=== PATIENT | female | born 1955 | race Caucasian/White ===

== ENCOUNTER → 2020-12-29 10:12 | Outpatient (CLI) | payer MEDICARE, SELFPAY ==
--- NOTE | ~2020-12-29 | MR_ITS ---
EXAMINATION: MR lumbar spine wo con DATE: 12/29/2020 10:54 INDICATION: Acute bilateral sciatica with severe lower back and bilateral leg pain and tingling of on e-week duration TECHNIQUE: Magnetic resonance imaging (MRI) of the lumbar spine was performed without intravenous con trast. Sequences included sagittal T2-weighted FSE, sagittal T2-weighted FS FSE, sagittal T1-weighted FSE, and axial T2-weighted FSE. COMPARISON: Thoracic spine radiographs dated 04/24/2019 FINDINGS: Marrow edema surrounding linear low signal intensity likely acute insufficiency fracture lines withou t evident displacement extending transversely across the S2 vertebral body and incompletely visualize d along the visualized anterolateral aspects of the left and right sacral ala. Approximately 20 degrees lumbar dextroscoliosis. 6 mm anterolisthesis L4 on L5. No associated pars in terarticularis defects. Chronic T10 burst fracture with 50% anterior vertebral body height loss and t o have 3 mm retropulsion. Additional chronic T12 compression fracture with 20% anterior vertebral bod y height loss. There are Schmorl's nodes along the superior endplates of both T10 and T12. These find ings appear unchanged since radiographs dated 04/24/2019. Lumbar vertebral body heights are normal. Mi ld fibrovascular degenerative endplate changes on both sides of the L4-L5 and L5-S1 disc spaces. [place] ow signal is otherwise unremarkable. Disc desiccation and mild left-sided disc height loss at L2-L3 a nd L3-L4. Severe disc height loss at L4-L5 and mild to severe right-sided predominant disc height los s at L5-S1. There are annular fissures and disc extrusions at both L4-L5 and L5-S1 which be further d etailed below. The conus medullaris terminates at L1-L2. There is normal signal in the caudal spinal cord. Paravertebral soft tissues are unremarkable. The following disc levels are specifically discuss ed: T12-L1: Disc is minimally bulging. There is mild right and minimal left facet joint osteoarthritis. T here is no neural foraminal stenosis. There is no central canal stenosis. L1-L2: Disc is minimally bulging. There is mild right and minimal left facet joint osteoarthritis. Th ere is no neural foraminal stenosis. There is no central canal stenosis. L2-L3: Disc is mildly bulging. There is mild left and minimal right facet joint osteoarthritis. There is mild bilateral neural foraminal stenosis. There is mild central canal stenosis. L3-L4: Disc is mildly bulging. There is mild hypertrophy of the ligamentum flavum. There is mild bila teral facet joint osteoarthritis. There is mild right and minimal left neural foraminal stenosis. The re is mild central canal stenosis. L4-L5: Disc is bulging with annular fissure and superimposed disc extrusion extending from the right subarticular zone through the left foraminal zone with disc material extending up to 6 more cephalad to the level of the inferior endplate of L4. There is hypertrophy of the ligamentum flavum. There is severe right and advanced left facet joint osteoarthritis. There is moderate right and moderate to se ellen left neural foraminal stenosis with compression of the exiting left L4 nerve root between the di sc extrusion in the junction of the left pedicle and base of the transverse process of L4. There is s evere central canal stenosis. L5-S1: Disc is bulging with annular fissure and small central disc extrusion with disc material exten ding 2-3 mm cephalad and caudal to the level of the endplates. There is mild to moderate left and sev ere right facet joint osteoarthritis. There is mild to moderate left and moderate to severe right belen ral foraminal stenosis with compression of the exiting right L5 nerve root. There is mild central can al stenosis and of the right lateral recess. IMPRESSION: 1. Relatively acute appearing sacral insufficiency fractures extending across the S2 vertebral b
== END ==
PROVIDERS: PCP Family Medicine Adolescent Medicine; Visit Provider Family Medicine Adolescent Medicine
DX: M54.40 Lumbago with sciatica, unspecified side (principal)
CPT/HCPCS: 72148

== ENCOUNTER 2021-01-03 10:32 | Observation (INO) | payer MEDICARE, SELFPAY ==
[2021-01-03] VITALS (7 sets, daily range): BP systolic 115–145; BP diastolic 67–87; PULSE 85–102; RESP 18–25; TEMP 36.2–36.6; O2SAT 98–100; BMI 18.3
[2021-01-03] MEDS: SODIUM CHLORIDE 0.9% IV 1,000 ML 999 ML IV CONT (10:59)
[2021-01-03 11:09] LABS: Basophils Absolute Auto 0.1 K/mm3 (0.0-0.1); Basophils Percent Auto 0.8 % (0.2-1.2); Eosinophils Percent Auto 0.5 % (0-4.4); Hemoglobin 11.4 g/dL (12.0-15.0); Immature Granulocyte Absolute 0.05 K/mm3 (0.00-0.031); Immature Granulocyte Percent A 0.6 % (0-0.5); Lymphocytes Percent Auto 21.4 % (18.3-44.2); Mean Corpuscular HGB Conc 32.6 g/dl (32-36); Mean Corpuscular Hemoglobin 32.8 pg (26-34); Mean Corpuscular Volume 100.6 fl (80-100); Mean Platelet Volume 9.2 fl (7.4-10.4); Monocytes Absolute Auto 0.4 K/mm3 (0.1-0.6); Neutrophils Percent Auto 71.7 % (45.5-73.1); Platelet Count Result 510 k/mm3 (150-375); Red Blood Count 3.48 M/mm3 (4.2-5.4); Red Cell Distribution Width 12.8 % (11.5-14.5); White Blood Count 8.4 K/mm3 (4.5-10.0)
[2021-01-03] MEDS: methocarbamoL 750 MG TABLET PO (11:10)
[2021-01-03] MEDS: LIDOCAINE 5% PATCH 1 PATCH TRANSDERM (11:22)
[2021-01-03 11:34] LABS: Add Urine Microscopic? YES; Appearance Urine Clear (Clear); Bilirubin Urine Negative (Negative); Blood Urine Negative (Negative); Color Urine Yellow (Yellow); Glucose Urine UA Negative (Negative); Ketones Urine 1+ mg/dL (Negative); Leukocyte Esterase Ur Negative LEU/UL (Negative); Mucus Urine Rare /lpf; Nitrate Urine Negative (Negative); Protein Urine 1+ mg/dL (Negative); RBC Urine 0-2 /hpf (0-2); Specific Grav Ur 1.027 (1.001-1.035); Urobilinogen Urine Negative mg/dL (<2.0); WBC Urine 0-3 /hpf
[2021-01-03 11:53] LABS: Anion Gap 4 mmol/L (8-16); Blood Urea Nitrogen 16 mg/dL (7-17); Calcium 8.9 mg/dL (8.4-10.2); Carbon Dioxide 23 mmol/L (22-30); Chloride 111 mmol/L (98-107); Estimated Glomerular Filt Rate > 60; Glucose 91 mg/dL (65-105); Potassium 3.9 mmol/L (3.4-5.0); Sodium 138 mmol/L (137-145)
--- NOTE | 2021-01-03 12:41 | PC.NURSE ---
Patient unable to sit up in bed or stand at bedside or ambulate. Also refusing to use urinal for urine specimen. Patient was straight cath for urine when arrived per her request. Kristofer YUEN notified.
--- NOTE | 2021-01-03 13:25 | ED.BACK ---
HPI - Back Pain/Injury General Chief Complaint: Back Pain/Injury <Tommy Sierra PA-C Last Filed: 01/03/21 13:29> Stated Complaint: back pain <Tommy Sierra PA-C Last Filed: 01/03/21 13:29> Source: patient, family and old records reviewed <Tommy Sierra PA-C Last Filed: 01/03/21 13:29> Limitations: no limitations <Tommy Sierra PA-C Last Filed: 01/03/21 13:29> History of Present Illness HPI Narrative: Patient is a 65-year-old female who presents to emergency department for evaluation of low back pain patient had had a fall several weeks prior and has since had increasing low back pain her primary care doctor Dr. Guerrero ordered a MRI of the lumbar spine which revealed a sacral insufficiency fracture as the likely etiology of her discomfort and pain pain is localized to the low back and radiates into the thigh on the right side patient denies other injury or trauma or illness presents uncomfortable has been taking some old pain medication with minimal improvement and over the last 3 days due to the pain is having difficulty performing daily activities patient lives at home with her <Tommy Sierra PA-C Last Filed: 01/03/21 13:29> Related Data Home Medications: Home Medications Medication Instructions Recorded Confirmed No Home Medications 01/03/21 01/03/21 <Tommy Sierra PA-C Last Filed: 01/03/21 13:29> Allergies/Adverse Reactions: Allergies Allergy/AdvReac Type Severity Reaction Status Date / Time doxycycline Allergy Vomiting Verified 01/03/21 16:04 prochlorperazine Allergy Vomiting Verified 01/03/21 16:04 [From Compazine] <Tommy Sierra PA-C Last Filed: 01/03/21 13:29> Review of Systems Review of Systems: All systems reviewed & are unremarkable except as noted in HPI and below <Tommy Sierra PA-C Last Filed: 01/03/21 13:29> [facility] Past Medical History Medical History: Medical History (Updated 01/03/21 @ 16:08 by Adarsh Giron MD) Arthritis COPD (chronic obstructive pulmonary disease) Dextroscoliosis Thoracic compression fracture T10 & T12 due to fall Tobacco use disorder, continuous <Tommy Sierra PA-C - Last Filed: 01/03/21 13:29> Surgical History Surgical History: Surgical History (Updated 01/03/21 @ 16:02 by Adarsh Giron MD) Hx of tonsillectomy <Tommy Sierra PA-C - Last Filed: 01/03/21 13:29> Family History Family History: Family History Father , Unknown medical hx No problems noted. Mother Lung cancer Sibling Well adult <Tommy Sierra PA-C - Last Filed: 01/03/21 13:29> Social History Social History: Social History (Updated 01/03/21 @ 16:05 by Adarsh Giron MD) Smoking packs per day: 1 Smoking cigarettes per day: 20.0 Smoking status: Current every day smoker Tobacco type: cigarettes Second hand tobacco smoke exposure: No Alcohol intake: current Alcohol use details: occasional Substance use: current Substance use type: marijuana Other substance usage details: occasional Living arrangements: with family Additional living arrangements comments: Resides with spouse in their own home Occupation/Education: occupation 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 HEAD: Normocephalic, atraumatic. EYES: PERRLA and EOMI. ENT: Nares clear, no rhinorrhea or epistaxis. Mucous membranes moist. NECK: Supple. No adenopathy or masses. CHEST: Clear to auscultation. No respiratory dis
--- NOTE | 2021-01-03 15:24 | PM.IMHP ---
H&P: HPI History of Present Illness Date/Time: 01/03/21 15:24 Chief Complaint: LOW BACK PAIN TO RIGHT BUTTOCK AND THIGH AND UNABLE TO GET OUT OF BED Narrative: 67-year-old female was in her usual state of health until about 2 weeks ago. She did have a fall 2 weeks ago. It was raining and the neighbor's dog ran up and jumped up placing is from pause on her and pushed her forward. She did not have any pain during the fall. Soon afterwards however she noticed that while sitting on the kitchen floor playing with her puppy she had pain in her low back and gluteal fold region when getting up. She had been sitting on the kitchen floor playing with a puppy intermittently since she obtained it about 3 months ago. At 1st the pain hurt only when she was getting up off the kitchen floor. Gradually increased so that it hurt any time she was up and about or changing positions. With past week it has been radiating to the right buttock and posterior thigh. She also noticed some tingling in both legs down to the ankles over the last few days. On December 29 she was underwent an MRI of her lumbosacral spine. It revealed an insufficiency fracture across S2 that appeared relatively acute with older appearing fractures at T10 and T12 and with moderate dextroscoliosis and spondylolysis. For the past 2-3 days she was able to get out of bed by rolling over and out of bed. However today she was unable to do that because of severe pain. Because of her inability to get out of bed she presented to the emergency department. She describes her pain as a severe deep aching that is constant. Relieved by lying down. Worsened by any movement, sitting, or standing. Motrin provides minimal relief. Other than constipation, she denied change in bowel or bladder function. Last bowel movement was January 01 and was firm. She denied any abnormal bleeding. She denied dysuria. She denied incontinence of bowel or bladder. She denied weakness the lower extremities but did admit to a tingling sensation down posterior thighs and legs to the feet. Review of Systems Review of Systems: All systems reviewed & are unremarkable except as noted in HPI and below PMFSH Past Medical History Medical History (Updated 01/03/21 @ 16:08 by Adarsh Giron MD) Arthritis COPD (chronic obstructive pulmonary disease) Dextroscoliosis Thoracic compression fracture T10 & T12 due to fall Tobacco use disorder, continuous Surgical History Surgical History (Updated 01/03/21 @ 16:02 by Adarsh Giron MD) Hx of tonsillectomy Family History Family History Father , Unknown medical hx No problems noted. 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
--- NOTE | 2021-01-03 15:54 | ADMGEN ---
This patient, Salena Solis, was admitted to [facility] Surg Room 302-01. Patient/family oriented to hospital policies and general routines including ID bracelet, bed and alarms, visiting hours, pain management, procedures, bathroom and other care routines, personal items, smoking policy, room service/diet, and visiting hours. Information on how to activate the Rapid Response Team has been discussed. Patient/Family are encouraged to report perceived risks to care and to ask questions if they do not understand what they are told or what they should do.
[2021-01-03] MEDS: HYDROcodone/acetaminophen (*CRX) 5-325 MG TABLET 1 TAB PO ×2 (16:40→23:37)
[2021-01-03] MEDS: LACTATED RINGERS 1,000 ML 75 ML IV CONT (17:34)
[2021-01-03 18:02] LABS: Immature Reticulocyte Fraction 10.5 % (3.0-15.9); Reticulocyte Percent 1.77 % (0.7-4.3); Reticulocytes Absolute 0.06 B/L (32.2-175.7)
[2021-01-03 18:14] LABS: Magnesium 1.4 mg/dL (1.6-2.3)
[2021-01-03 18:16] LABS: CRP 0.6 mg/dL (<1.0)
[2021-01-03 18:31] LABS: Parathyroid Intact 28.2 pg/mL (7.5-53.5)
[2021-01-03 18:46] LABS: Iron 55 ug/dL (37-170)
[2021-01-03 18:55] LABS: Percent Iron Saturation 21 % (20-50)
[2021-01-03 19:04] LABS: Vitamin D 25 Hydroxy 36.7 ng/mL
[2021-01-03 19:16] LABS: Thyroid Stimulating Hormone Reflex 0.579 uIU/mL (0.465-4.68)
[2021-01-03 19:21] LABS: Folic Acid > 20.0 ng/mL (2.76->20); Vitamin B12 > 1000.0 pg/mL (239-931)
[2021-01-03] MEDS: SENNOSIDES 8.6 MG TABLET PO (20:09)
[2021-01-04 06:00] VITALS: BP 149/79; PULSE 86; RESP 18; TEMP 36.6; O2SAT 98
[2021-01-04 06:17] LABS: Hematocrit 30.8 % (37.0-47.0); Hemoglobin 10.3 g/dL (12.0-15.0); Mean Corpuscular HGB Conc 33.4 g/dl (32-36); Mean Corpuscular Hemoglobin 32.8 pg (26-34); Mean Corpuscular Volume 98.1 fl (80-100); Mean Platelet Volume 9.4 fl (7.4-10.4); Platelet Count Result 491 k/mm3 (150-375); Red Blood Count 3.14 M/mm3 (4.2-5.4); Red Cell Distribution Width 12.4 % (11.5-14.5); White Blood Count 7.9 K/mm3 (4.5-10.0)
[2021-01-04 06:30] LABS: Anion Gap 7 mmol/L (8-16); Blood Urea Nitrogen 11 mg/dL (7-17); Calcium 8.6 mg/dL (8.4-10.2); Carbon Dioxide 21 mmol/L (22-30); Chloride 110 mmol/L (98-107); Estimated CRCL calculation 52 ml/min; Estimated Glomerular Filt Rate > 60; Glucose 85 mg/dL (65-105); Potassium 3.8 mmol/L (3.4-5.0); Sodium 138 mmol/L (137-145)
[2021-01-04] MEDS: LACTATED RINGERS 1,000 ML 75 ML IV CONT (08:07)
[2021-01-04] MEDS: HYDROcodone/acetaminophen (*CRX) 5-325 MG TABLET 1 TAB PO ×2 (08:10→12:12)
[2021-01-04 09:15] LABS: Magnesium 1.3 mg/dL (1.6-2.3)
[2021-01-04 09:26] VITALS: O2SAT 96
[2021-01-04 12:18] LABS: Magnesium 1.3 mg/dL (1.6-2.3)
[2021-01-04] MEDS: MAGNESIUM SULF 2 GM/WATER 50ML 2 GM/50 ML BAG IVPB (12:18)
[2021-01-04] MEDS: ENOXAPARIN 40 MG/0.4 ML SYRINGE SUB-Q (12:22)
[2021-01-04 14:00] VITALS: BP 147/87; PULSE 104; RESP 16; TEMP 36.2; O2SAT 97
--- NOTE | 2021-01-04 16:22 | PM.DS ---
DS: Admitting Diagnosis Admitting Diagnosis Admitting Diagnosis: low back pain, ambulatory dysfunction DS: Discharge Diagnosis Discharge Diagnosis (1) Bilateral sacral insufficiency fracture: Qualifiers: Encounter type: sequela Qualified Code(s): M84.48XS - Pathological fracture, other site, sequela Code(s): M84.48XA - Pathological fracture, other site, initial encounter for fracture Status: Acute Assessment and Plan: Date of Admission 01/03/21 Date of Discharge 01/04/21 Ms. Solis is a 65yo F who presented to the ED for evaluation for lower back pain to right buttock and thigh. She noted over the last week or two, she has been getting up and down to the floor recently playing with her new puppy. She first noticed pain to her low back and gluteal fold region when getting up. On 12/29/20 she underwent outpatient MRI lumbosacral spine which displayed an insufficiency fracture across S2 that appeared relatively acute with older appearing fractures at T10 and T12 and with moderate dextroscoliosis and spondylolysis. This is felt to be the etiology of her pain. Day of arrival, she had trouble even getting out of bed or walking prompting her to come to the ED. She has been treated with supportive care with tylenol and [place] for pain control. She is improved today and is able to ambulate with a walker with some help. She declines needing further discharge needs or SNF placement. She notes she is going to obtain a walker and her will be able to help her at home. Magnesium level 1.3 and replaced. She is hemodynamically stable for discharge 01/04/21 with instructions to follow up with PCP this week. (2) Anemia: Qualifiers: Anemia type: unspecified type Qualified Code(s): D64.9 - Anemia, unspecified Code(s): D64.9 - Anemia, unspecified Status: Acute Assessment and Plan: Unsure of chronicity, no baseline labs here for comparison. No evidence of acute bleeding. (3) Thrombocytosis: Code(s): D47.3 - Essential (hemorrhagic) thrombocythemia Status: Acute Assessment and Plan: No baseline available Worrisome for iron deficiency or underlying neoplastic or inflammatory disorder; iron on lower end in normal limit. She has not had a screening colonoscopy Stool occult blood ordered but no BM while here. Monitor CBC outpatient, follow up PCP. (4) Tobacco use disorder, continuous: Code(s): F17.209 - Nicotine dependence, unspecified, with unspecified nicotine-induced disorders Status: Acute Assessment and Plan: Patient was educated on the importance of smoking cessation. DS: Summary Hospital Course Hospital Course: See above Time Spent with Patient Time attestation: Total time spent providing and/or coordinating discharge services: 35 minutes Exam Narrative: Exam Narrative: HEENT: EOMI, sclerae nonicteric, oral mucosa moist. NECK: Supple, no JVD CHEST: Clear to auscultation. Normal effort. HEART: Rate and rhyhtm regular. ABDOMEN: soft, nontender, nondistended, bowel sounds present. EXTREMITIES: No cyanosis, edema, or clubbing NEUROLOGIC: CN intact and symmetric to inspection. No focal neurologic deficits are noted. Speech is clear. MUSCULOSKELETAL: Tone and strength symmetric. 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 SLR DANYELL causes pain to buttock. PSYCH: Alert. Oriented to person, place, and time. DS: Data Data Completed and Pending Labs on day of discharge: Last Vital Signs Temp 97.2 F L 01/04/21 14:00 Pulse 104 H 01/04/21 14:00 Resp 16 01/04/21 14:00 BP 147/87 H 01/04/21 14:00 Pulse Ox 97 01/04/21 14:00 Laboratory Tests 01/04/21 05:35 01/04/21 05:35 Discharge Plan Discharge Attending physician on discharge
[2021-01-07 06:15] LABS: Albumin 3.7 g/dL (3.8-4.8); Alpha 1 Globulin 0.4 g/dL (0.2-0.3); Alpha 2 Globulin 0.8 g/dL (0.5-0.9); Beta 1 Globulin 0.4 g/dL (0.4-0.6); Gamma Globulin 0.6 g/dL (0.8-1.7); Protein, Total 6.2 g/dL (6.1-8.1)
[2021-01-09 05:33] LABS: Creatinine, Random Urine 48 mg/dL (20-275); Total Protein/Creatinine Ratio 292 mg/g creat (21-161)
== END 2021-01-04 17:50 | disposition home or self-care (01) ==
LOC: ANHED 15:24 → ANH3MEDSUR 15:31
PROVIDERS: Emergency Medicine Emergency Medical Services; Physician Assistant; Admitting Provider Internal Medicine; Emergency Provider Emergency Medicine; PCP Family Medicine Adolescent Medicine; Visit Provider Family Medicine
DX: M84.48XA Pathological fracture, other site, initial encounter for fracture (principal); D64.9 Anemia, unspecified; D47.3 Essential (hemorrhagic) thrombocythemia; F17.210 Nicotine dependence, cigarettes, uncomplicated; Z79.899 Other long term (current) drug therapy
CPT/HCPCS: 36415; 51701; 80048; 81001; 82306; 82570; 82607; 82746; 83540; 83550; 83735; 83970; 84100; 84155; 84156; 84165; 84166; 84443; 85025; 85027; 85046; 86140; 96361; 96365; 96367; 96372; 96376; 97161; 97165; 99285; A9270; G0378; J0131; J1650; J3475; J7030; J7120

== ENCOUNTER 2021-01-11 13:03 | Outpatient (NON) | payer MEDICARE, SELFPAY ==
[2021-01-11 14:16] LABS: Magnesium 1.6 mg/dL (1.6-2.3)
== END 2021-01-11 13:04 | disposition home or self-care (01) ==
PROVIDERS: PCP Family Medicine Adolescent Medicine; Visit Provider Family Medicine Adolescent Medicine
DX: M84.48XD Pathological fracture, other site, subsequent encounter for fracture with routine healing (principal); D64.9 Anemia, unspecified; D47.3 Essential (hemorrhagic) thrombocythemia
CPT/HCPCS: 83735

== ENCOUNTER → 2022-07-20 14:22 | Outpatient (CLI) | payer MEDICARE, SELFPAY ==
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
== END ==
PROVIDERS: PCP Family Medicine Adolescent Medicine; Visit Provider Family Medicine Adolescent Medicine
DX: S32.010D Wedge compression fracture of first lumbar vertebra, subsequent encounter for fracture with routine healing (principal); X58.XXXD Exposure to other specified factors, subsequent encounter; M85.88 Other specified disorders of bone density and structure, other site
CPT/HCPCS: 72070; 72100

== ENCOUNTER → 2022-09-02 09:11 | Outpatient (CLI) | payer MEDICARE, SELFPAY ==
--- NOTE | ~2022-09-02 | MR_ITS ---
EXAMINATION: MR lumbar spine wo con DATE: 09/02/2022 10:42 INDICATION: Low back pain. TECHNIQUE: Magnetic resonance imaging (MRI) of the lumbar spine was performed without intravenous con trast. Sequences included sagittal T2-weighted FSE, sagittal T2-weighted FS FSE, sagittal T1-weighted FSE, and axial T2-weighted FSE. COMPARISON: Lumbar spine MRI 12/29/2020, radiograph 04/19/2022 FINDINGS: There is 23 degrees dextroscoliosis of lumbar spine. There is 7 mm anterolisthesis of L4 on L5. There is a burst fracture of T9 with 2/5 loss of height, low signal fracture lines, bone marrow edema, and retropulsion of bone 2 mm into central spinal canal. There is a chronic burst fracture of T10 with mild central canal stenosis. There is a chronic compression fracture of T12. There is a burs t fracture of L1 with 3/5 loss of height centrally, retropulsion of bone 5 mm into central spinal can al, and bone marrow edema. There is mildly decreased disc height at L3-L4 and severely decreased disc height at L4-L5 and L5-S1 with endplate remodeling. The distal spinal cord signal intensity is srinivasa l. The conus medullaris is at L1-L2. The following disc levels are specifically discussed: T12-L1: The disc is bulging. There is mild bilateral facet joint osteoarthritis. There is mild bilate ral neural foraminal stenosis. There is mild central canal stenosis. L1-L2: The disc is bulging. There is mild bilateral facet joint osteoarthritis. There is no neural fo raminal stenosis. There is mild central canal stenosis. L2-L3: The disc is bulging. There is mild right and severe left facet joint osteoarthritis. There is mild bilateral neural foraminal stenosis. There is mild central canal stenosis. L3-L4: The disc is bulging. There is severe right and moderate left facet joint osteoarthritis. There is mild bilateral neural foraminal stenosis. There is mild central canal stenosis. L4-L5: The disc is bulging and has an annular fissure. There is severe bilateral facet joint osteoart hritis. There is mild right and severe left neural foraminal stenosis. There is mild central canal st enosis. L5-S1: The disc is bulging and has an annular fissure. There is severe bilateral facet joint osteoart hritis. There is moderate right and mild left neural foraminal stenosis. There is mild central canal stenosis. IMPRESSION: 1. Subacute L1 burst fracture, stable from 07/20/22. 2. T9 burst fracture, likely acute or subacute, new from 07/20/22. 3. Severe lumbar spondylosis. 4. Lumbar dextroscoliosis. Reviewed, dictated and finalized at location A. ESS ARCHITECT
== END ==
PROVIDERS: PCP Nurse Practitioner Adult Health; Visit Provider Nurse Practitioner Adult Health
DX: M47.896 Other spondylosis, lumbar region (principal); S22.071D Stable burst fracture of T9-T10 vertebra, subsequent encounter for fracture with routine healing; X58.XXXD Exposure to other specified factors, subsequent encounter; S32.011D Stable burst fracture of first lumbar vertebra, subsequent encounter for fracture with routine healing
CPT/HCPCS: 72148

== ENCOUNTER 2022-12-20 08:16 | Emergency (ER) | payer MEDICARE, SELFPAY ==
[2022-12-20] VITALS (9 sets, daily range): BP systolic 108–132; BP diastolic 64–79; PULSE 90–126; RESP 12–20; TEMP 36.3–37; O2SAT 97–100
--- NOTE | ~2022-12-20 | CT_ITS ---
Noncontrast CT scan of the lumbar spine MEDICAL HISTORY: Back pain, prior surgery TECHNIQUE: Axial noncontrast imaging of the lumbar spine was performed. Sagittal and coronal reformat frank images were constructed. Dose reduction technique was used on this scan by utilizing automated ex posure control and iterative reconstruction technique. FINDINGS: Moderate compression fracture of L1 is present with vertebroplasty cement. Questionable min imally displaced fracture, obliquely oriented at the posterior superior left side of the L5 vertebral body (sagittal images 34-35).. There is anterior fusion across the L4-L5 and L5-S1 disc spaces. Ther e are interbody fusion devices at the L4-L5 and L5-S1 disc spaces. There is an apparent underlying 5 mm anterolisthesis of L4 over L5. Remaining disc spaces are well-preserved. At L1-L2, there is probable minimal disc bulge. No spinal canal stenosis. There is probable moderate bilateral neural foraminal narrowing. At L2-L3, there is no disc bulge or herniation. No spinal canal stenosis or definite neural foraminal narrowing. At L3-L4, there is probable mild disc bulge and mild facet joint/ligamentum flavum hypertrophy. Proba ble minimal central canal stenosis. Neural foramina are preserved. At L4-L5, there is disc bulge and facet arthropathy, with probable moderate to severe thecal sac comp ression/spinal canal stenosis. There is probable moderate bilateral neural foraminal narrowing, left worse than right. At L5-S1, there is no definite disc bulge or herniation. No definite spinal canal stenosis. There is probable severe right neural foraminal narrowing and moderate left neural foraminal narrowing. There is asymmetric prominent enlargement of the left psoas major muscle, with scattered small bubble s of soft tissue gas in the muscle. There is infiltrative change in the surrounding retroperitoneal f at. There is additional infiltration of presacral soft tissues. IMPRESSION: Asymmetric enlargement of the left psoas major muscle with surrounding infiltrative changes and sever al small bubbles of scattered soft tissue gas. Findings could reflect postoperative change and/or int ramuscular hematoma. Soft tissue/postoperative infection is not excluded. Correlation with patient's symptomatology, labwork, and timeframe of prior surgery advised. Questionable oblique minimally displaced fracture at the posterior, superior left side of the L5 vert ebral body, as detailed above. Status post anterior fusion from L4 to L5 and L5-S1 with associated interbody fusion, as detailed abo ve. Moderate chronic L1 compression fracture deformity with vertebroplasty cement. Multifactorial probable moderate to severe thecal sac compression at L4-L5. Multilevel neural foramin al narrowing at the lower lumbar spine, as detailed above. Underlying 5 mm anterolisthesis of L4 over L5. Reviewed, dictated and finalized at [facility].
--- NOTE | ~2022-12-20 | CT_ITS ---
CT scan of the lumbar spine MEDICAL HISTORY: Back pain, prior surgery TECHNIQUE: Axial imaging of the lumbar spine was performed prior to and following intravenous demonst ration of a 3 cc of Omnipaque 350 contrast material. Sagittal and coronal reformatted images were con structed. Dose reduction technique was used on this scan by utilizing automated exposure control and iterative reconstruction technique. The dose-length product (DLP) was 649.90 mGy-cm. FINDINGS: Moderate compression fracture of L1 is present with vertebroplasty cement. Questionable min imally displaced fracture, obliquely oriented at the posterior superior left side of the L5 vertebral body (sagittal images 34-35).. There is anterior fusion across the L4-L5 and L5-S1 disc spaces. Ther e are interbody fusion devices at the L4-L5 and L5-S1 disc spaces. There is an apparent underlying 5 mm anterolisthesis of L4 over L5. Remaining disc spaces are well-preserved. At L1-L2, there is probable minimal disc bulge. No spinal canal stenosis. There is probable moderate bilateral neural foraminal narrowing. At L2-L3, there is no disc bulge or herniation. No spinal canal stenosis or definite neural foraminal narrowing. At L3-L4, there is probable mild disc bulge and mild facet joint/ligamentum flavum hypertrophy. Proba ble minimal central canal stenosis. Neural foramina are preserved. At L4-L5, there is disc bulge and facet arthropathy, with probable moderate to severe thecal sac comp ression/spinal canal stenosis. There is probable moderate bilateral neural foraminal narrowing, left worse than right. At L5-S1, there is no definite disc bulge or herniation. No definite spinal canal stenosis. There is probable severe right neural foraminal narrowing and moderate left neural foraminal narrowing. There is asymmetric prominent enlargement of the left psoas major muscle, with scattered small bubble s of soft tissue gas in the muscle. There is a fluid-filled tract through the anterior portion of the muscle, which could reflect abscess versus postoperative change. There is infiltrative change in the surrounding retroperitoneal fat. There is additional infiltration of presacral soft tissues. IMPRESSION: Asymmetric enlargement of the left psoas major muscle with surrounding infiltrative changes and fluid -filled tract with small bubbles of gas within the muscle. Findings could reflect postoperative fonseca e and/or abscess with soft tissue infection. Correlation with patient's symptomatology, labwork, and timeframe of prior surgery advised. Questionable oblique minimally displaced fracture at the posterior, superior left side of the L5 vert ebral body, as detailed above. Status post anterior fusion from L4 to L5 and L5-S1 with associated interbody fusion, as detailed abo ve. Moderate chronic L1 compression fracture deformity with vertebroplasty cement. Multifactorial probable moderate to severe thecal sac compression at L4-L5. Multilevel neural foramin al narrowing at the lower lumbar spine, as detailed above. Underlying 5 mm anterolisthesis of L4 over L5. Reviewed, dictated and finalized at location M. IMPRESSION: Asymmetric enlargement of the left psoas major muscle with surrounding infiltra tive changes and fluid-filled tract with small bubbles of gas within the muscle . Findings could reflect postoperative change and/or abscess with soft tissue i nfection. Correlation with patient's symptomatology, labwork, and timeframe of prior surgery advised. Questionable oblique minimally displaced fracture at the posterior, superior le ft side of the L5 vertebral body, as detailed above. Status post anterior fusion from L4 to L5 and L5-S1 with assoc
--- NOTE | ~2022-12-20 | CT_ITS ---
CT head without contrast Indication: Altered mental status Technique: Serial scans were obtained through the brain without the administration of contrast. Dose reduction technique was used on this scan by utilizing automated exposure control and iterative recon struction technique. The dose-length product (DLP) was 605.33 mGy-cm. Findings: There is no evidence of intracranial hemorrhage, mass lesion, or acute infarct. The ventri cles and subarachnoid spaces are dilated, consistent with mild atrophy. Low attenuation regions are seen within the periventricular white matter bilaterally, likely representing changes from chronic mi crovascular ischemic disease. There is no evidence of edema, mass effect or midline shift. The visu alized paranasal sinuses and mastoid air cells are clear. Impression: No intracranial hemorrhage, mass, or acute infarct. Atrophy and chronic white matter changes, as above. Reviewed, dictated and finalized at location . Impression: No intracranial hemorrhage, mass, or acute infarct. Atrophy and chronic white matter changes, as above.
--- NOTE | 2022-12-20 08:30 | ECG_ITS ---
Measurements Intervals [place] Rate: 122 P: -18 CO: 111 QRS: 40 QRSD: 82 T: 44 QT: 304 QTc: 433 Interpretive Statements SINUS TACHYCARDIA WITH SHORT CO INTERVAL DELAYED PRECORDIAL R/S TRANSITION BASELINE ARTIFACT- I, II, III, AVR, AVL, AVF, V6 ABNORMAL ECG NO PREVIOUS ECG AVAILABLE FOR COMPARISON Electronically Signed On 12-20-2022 9:00:28 CDT by Mykel Rodriguez D.O.
[2022-12-20 08:58] LABS: Basophils Absolute Auto 0.1 K/mm3 (0.0-0.1); Basophils Percent Auto 0.4 % (0.2-1.2); Hematocrit 30.3 % (37.0-47.0); Hemoglobin 9.6 g/dL (12.0-15.0); Immature Granulocyte Absolute 0.08 K/mm3 (0.00-0.031); Immature Granulocyte Percent A 0.6 % (0-0.5); Lymphocytes Absolute Auto 0.72 K/mm3 (0.9-3.2); Lymphocytes Percent Auto 5.7 % (18.3-44.2); Mean Corpuscular HGB Conc 31.7 g/dl (32-36); Mean Corpuscular Hemoglobin 31.5 pg (26-34); Mean Corpuscular Volume 99.3 fl (80-100); Mean Platelet Volume 9.8 fl (7.4-10.4); Monocytes Absolute Auto 0.9 K/mm3 (0.1-0.6); Monocytes Percent Auto 6.8 % (2.6-8.5); Neutrophils Percent Auto 86.5 % (45.5-73.1); Platelet Count Result 414 k/mm3 (150-375); Red Blood Count 3.05 M/mm3 (4.2-5.4); Red Cell Distribution Width 13.1 % (11.5-14.5); White Blood Count 12.7 K/mm3 (4.5-10.0)
[2022-12-20 09:11] LABS: INR 1.2; Partial Thromboplastin Time 30.2 SECONDS (22.3-36.8); Prothrombin Time 14.5 Seconds (11.1-14.7)
[2022-12-20 09:19] LABS: Alanine Aminotransferase 19 U/L (6-35); Albumin Level 4.4 g/dL (3.5-5.1); Alkaline Phosphatase 90 U/L (38-126); Anion Gap 10 mmol/L (8-16); Aspartate Amino Transferase 27 U/L (14-36); Bilirubin,Total 0.8 mg/dL (0.2-1.3); Blood Urea Nitrogen 16 mg/dL (7-17); Calcium 8.5 mg/dL (8.4-10.2); Carbon Dioxide 29 mmol/L (22-30); Chloride 102 mmol/L (98-107); Estimated CRCL calculation 45 ml/min; Estimated Glomerular Filt Rate > 60; Glucose 141 mg/dL (65-110); Potassium 4.1 mmol/L (3.4-5.0); Sodium 141 mmol/L (137-145)
--- NOTE | 2022-12-20 11:16 | ED.AMS ---
HPI - Altered Mental Status General Chief Complaint: Altered Mental Status Stated Complaint: confused Time Seen by Provider: 12/20/22 10:29 History of Present Illness HPI narrative: 67-year-old female presents to the emergency room today for evaluation after having episode of confusion upon awakening this morning. She just had back surgery on Monday at [facility] with Dr. Spangler. She was discharged home on Monday. She has been doing okay with taking pain medication. Her went to get her out of bed this morning and she seemed very disoriented. When she tried to stand up she got very lightheaded and he had to put her back down in the bed. He went ahead and brought her in for evaluation at that point. She says that she continues to have the postop low back pain. She has not had any fever or chills. No nausea, vomiting or diarrhea. Related Data Allergies Allergy/AdvReac Type Severity Reaction Status Date / Time doxycycline Allergy Vomiting Verified 12/20/22 10:02 prochlorperazine Allergy Vomiting Verified 12/20/22 10:02 [From Compazine] Review of Systems Review of Systems: CONSTITUTIONAL: Denies fever, chills, or sweats. EYES: Denies visual changes, redness, or discharge. ENT: Denies rhinorrhea, congestion, sore throat, or otalgia. CARDIOVASCULAR: Denies chest pain, palpitations, or edema. RESPIRATORY: Denies cough or dyspnea. GASTROINTESTINAL: Denies abdominal pain, nausea, vomiting, or diarrhea. GENITOURINARY: Denies dysuria or hematuria. SKIN: Denies rash or itching. MUSCULOSKELETAL: low back pain NEUROLOGIC:as per HPI PSYCHIATRIC: Denies anxiety or depression. [facility] Past Medical History Medical History Arthritis COPD (chronic obstructive pulmonary disease) Dextroscoliosis Thoracic compression fracture T10 & T12 due to fall Tobacco use disorder, continuous Surgical History Surgical History Hx of tonsillectomy Family History Family History Father , Unknown medical hx No problems noted. 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 HEAD: Normocephalic, atraumatic. EYES: PERRLA and EOMI NECK: Supple. No adenopathy or masses. No carotid bruits or JVD CHEST: Clear to auscultation. No respiratory distress. No wheezes rales or rhonchi HEART: Regular rate and rhythm. No murmur heard. Normal peripheral pulses. ABDOMEN: Soft, nontender, nondistended, normal active bowel sounds. surgical incision from umbilicus to pubic bone well approximated, with intact grant, no erythema or drainage EXTREMITIES: Normal range of motion. No edema. SKIN: Warm, dry, no rash. NEURO: No focal deficits. Alert and oriented x3. PSYCH: Normal mood and affect. Course Course Emergency Course: 1310 Discussed patient with neurosurgeon, Dr. Spangler, at [facility]. He feels that CT findings are consistant with post op status.
[2022-12-20 11:22] LABS: Appearance Urine Clear (Clear); Bacteria Urine None Seen /hpf; Bilirubin Urine Negative (Negative); Blood Urine 1+ (Negative); Color Urine Dark Yellow (Yellow); Glucose Urine UA Negative (Negative); Ketones Urine 4+ mg/dL (Negative); Leukocyte Esterase Ur Trace LEU/UL (Negative); Mucus Urine Present /lpf; Need Manual Microscopic Reviewed; Nitrate Urine Negative (Negative); Protein Urine 2+ mg/dL (Negative); Specific Grav Ur 1.028 (1.001-1.035); Squamous Epithelial Cell Urine None seen /hpf (Few); WBC Urine 0-5 /hpf; pH Urine 6.5 (5.0-9.0)
[2022-12-20] MEDS: SODIUM CHLORIDE 0.9% IV 1,000 ML 999 ML IV CONT (11:26)
[2022-12-20 11:33] LABS: Add Urine Microscopic? YES
[2022-12-20 11:55] LABS: Lactic Acid Reflex 1.1 mmol/L (0.7-2.0)
== END 2022-12-20 14:36 | disposition home or self-care (01) ==
PROVIDERS: Emergency Medicine; Emergency Provider Nurse Practitioner Family; PCP Family Medicine Adolescent Medicine
DX: R41.82 Altered mental status, unspecified (principal); G89.18 Other acute postprocedural pain; M54.50 Low back pain, unspecified; J44.9 Chronic obstructive pulmonary disease, unspecified; M19.90 Unspecified osteoarthritis, unspecified site; F17.210 Nicotine dependence, cigarettes, uncomplicated; R00.0 Tachycardia, unspecified; Z98.1 Arthrodesis status; R93.7 Abnormal findings on diagnostic imaging of other parts of musculoskeletal system
CPT/HCPCS: 36415; 70450; 72132; 72133; 80053; 81001; 83605; 85025; 85610; 85730; 87040; 93005; 96360; 96361; 99284; J7030; Q9967

== ENCOUNTER → 2022-12-21 13:56 | Outpatient (CLI) | payer MEDICARE, SELFPAY ==
--- NOTE | ~2022-12-21 | XR_ITS ---
EXAMINATION: XR lumbar spine 2-3V DATE: 12/21/2022 INDICATION: Low back TECHNIQUE: Anteroposterior and lateral views of the lumbar spine, and cone-down lateral view of the l umbosacral junction were obtained. COMPARISON: CT from yesterday FINDINGS: There are changes of anterior fusion from L4 the through S1. The fusion hardware appears in tact. There are compression fractures of T9 and L1 with vertebroplasty change. There is severe facet joint osteoarthritis of the lower lumbar spine. No definite acute fracture is identified. IMPRESSION: 1. Severe lumbar spondylosis with changes of anterior fusion from L4 through S1. No acute findings. Reviewed, dictated and finalized at location F. IMPRESSION: 1. Severe lumbar spondylosis with changes of anterior fusion from L4 through S1 . No acute findings.
== END ==
PROVIDERS: PCP Family Medicine Adolescent Medicine; Visit Provider Neurological Surgery
DX: M47.896 Other spondylosis, lumbar region (principal); Z98.1 Arthrodesis status
CPT/HCPCS: 72100

== ENCOUNTER 2025-09-16 14:39 | Emergency (ER) | payer MEDICARE, SELFPAY ==
--- NOTE | ~2025-09-16 | XR_ITS ---
XR ankle RT min 3V, XR foot RT min 3V 09/16/2025 15:31 Indication: Right ankle and foot pain after recent fall Procedure: 4 views right ankle and 4 views right foot Comparison: No prior studies for comparison. Findings: There are healed distal tibial diaphyseal and fibular metaphyseal fractures. There is mottled sclerosis distal aspect of the tibia just distal to the fracture, possibly avascular necrosis or enchondroma. There is a nondisplaced acute calcaneal fracture. Lisfranc joint intact. Osteopenia. Impression: 1: Nondisplaced acute calcaneal fracture. Reviewed, dictated and finalized at location O. OYMENT EVALUATOR/CASE MANAGER Impression: 1: Nondisplaced acute calcaneal fracture. Impression: 1: Nondisplaced acute calcaneal fracture.
--- NOTE | 2025-09-16 14:56 | ED.FALL ---
HPI - Fall General Chief Complaint: Fall Stated Complaint: Fall Time Seen by Provider: 09/16/25 15:15 Source: patient Mode of arrival: ambulatory Limitations: no limitations History of Present Illness HPI Narrative: Salena is a 70-year-old female patient presenting to the clinic today with complaints right foot and ankle pain after falling yesterday. She reports she was on a small step stool and she fell off landing on the foot. Has pain and swelling to the left heel and right lateral ankle. Has Rest iced and Kevin wrapped the foot. Has not taken Tylenol for pain. Rates pain 6/10 currently. Related Data Allergies Allergy/AdvReac Type Severity Reaction Status Date / Time doxycycline Allergy Vomiting Verified 09/16/25 15:09 prochlorperazine (From Allergy Vomiting Verified 09/16/25 15:09 Compazine) Review of Systems Review of Systems: Pertinent positives per HPI. Patient denies any fever, chills, rash, headache, visual changes, dizziness, cough, runny nose, sore throat, shortness of breath, chest pain, palpitations, nausea, vomiting, diarrhea, constipation, abdominal pain, or any urinary issues. [facility] Past Medical History Medical History Arthritis COPD (chronic obstructive pulmonary disease) Dextroscoliosis Thoracic compression fracture T10 & T12 due to fall Tobacco use disorder, continuous Surgical History Surgical History Hx of tonsillectomy Family History Family History Father , Unknown medical hx No problems noted. 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 Gender identity (if verbalized by the patient): Female Sexual Orientation (if Verbalized by the Patient): Straight or Heterosexual Spiritual care concerns: No Comments At the time of my signature, I reviewed and agree with the nursing past medical, surgical, social, and family history. There is no relevant family history pertinent to the patient complaint. Exam Narrative: General: Well-developed, well nourished, in no apparent distress Head: Normocephalic, atraumatic. Cardio: Regular rate and rhythm, s1 and s2 normal, no murmur appreciated. Resp: Clear to auscultation bilaterally, no rhonchi, rales, wheezing or rubs. Musculoskeletal: No deformity, swelling and bruising noted to the medial and lateral heel as well as over the lateral ankle, tender to palpation over the heel and over the lateral ankle, grossly normal range of motion, muscle strength strong and equal, peripheral pulse strong, no edema, no cyanosis, sitting in a wheelchair Course Course Level of Care: Express Care Visit Vital Signs Vital signs: Vital Signs Temperature 36.8 C 09/16/25 15:05 Pulse Rate 121 H 09/16/25 15:05 Respiratory Rate 18 09/16/25 15:05 Blood Pressure 129/98 H 09/16/25 15:05 Pulse Oximetry 96 09/16/25 15:05 Oxygen Delivery Room Air 09/16/25 15:05 Temperature 36.8 C 09/16/25 15:05 Pulse Rate 121 H 09/16/25 15:05 Respiratory Rate 18 09/16/25 15:05 Blood Pressure 129/98 H 09/16/25 15:05 Pulse Oximetry 96 09/16/25 15:05 Oxygen Delivery Room Air 09/16/25 15:05 [facility] MDM Narrative Medical decision making narrative: At the time of visit patient is resting comfortably on the exam table. Patient appears to be nontoxic. Complaints right foot and ankle pain after falling yesterday. She reports she was on a small step stool and she fell off landing on the foot. Has pain and swelling to the left heel and right lateral ankle. Has Rest iced and Kevin wrapped the foot. Has not taken Tylenol for pain. Rates pain 6/10 currently. On exam patient has bruising and swelling to the right heel and tenderness to palpation over the right ankle, has full range of motion, pain with bearing weight. X-ray of the right foot and ankle were ordered. Diagnostics: X-ray of the right foot and ankle show an acute nondisplaced calcaneal fracture Plan: Patient has acute nondisplaced calcaneal fracture of the right foot. Short-leg OCL was given in patient has walker-recommend light weight-bearing to the right foot while using the walker and follow-up with orthopedic doctor. Discussed using a walking boot if they can get her 1 and follow-up with ortho-call Dr. Hargrove office tomorrow. Supportive measures were discussed with the patient and they voiced understanding discharge instructions and agrees to treatment plan. Return precautions reviewed Differential Diagnosis Differential Diagnosis: Differential diagnostic considerations for fall injuries include syncope, concussion with loss of consciousness, concussion without loss of consciousness, vertebral fracture, extremity fracture/dislocation. Differential diagnostic considerations for lower extremity injury include ankle sprain/strain, acute internal derangement of knee, fracture of femur, fracture of hip, puncture wound of foot, fracture of toe, fracture of ankle, tendon rupture (achilles/patellar/quadriceps). Imaging Data Radiologist's impression: ITS Impressions Ankle X-Ray 09/16/25 15:44 Impression: 1: Nondisplaced acute calcaneal fracture. Foot X-Ray 09/16/25 15:44 Impression: 1: Nondisplaced acute calcaneal fracture. Discharge Plan Discharge Clinical Impression: Calcaneal fracture Qualifiers: Encounter type: initial encounter Calcaneus location: unspecified portion of calcaneus Fracture type: closed Fracture alignment: nondisplaced Laterality: right Qualified Code(s): S92.001A - Unspecified fracture of right calcaneus, initial encounter for closed fracture Patient Disposition: Home Condition: Stable Instructions: Antibiotic Form, Calcaneal Fracture (ED) Additional Instructions: X-ray shows an acute nondisplaced right calcaneal fracture. Rest, ice, elevate, and wear OCL splint as discussed May use walker with limited weight bearing to the right foot Tylenol/motrin for pain as discussed. Follow up with your PCP if symptoms persist more than 1 week. Follow-up with orthopedic provider- Dr. Hargrove- call office to schedule an appointment Patient Language: Indonesian Prescriptions: No Action magnesium oxide 400 mg (241.3 mg magnesium) tablet 400 mg PO DAILY Qty: 90 1RF Follow-up/Referrals: Jaret Hargrove MD [Physician, Orthopedics] - 1 Day Referral Note: Acute nondisplaced right calcaneal fracture Clinical Impression: Calcaneal fracture Nato Rhodes MD [Primary Care Provider, [facility]] Time of Disposition: 16:00 Quality NIHSS Nursing Documentation ED NIHSS nursing documentation: reviewed/agree
[2025-09-16 15:05] VITALS: BP 129/98; PULSE 121; RESP 18; TEMP 36.8; O2SAT 96
== END 2025-09-16 16:20 | disposition home or self-care (01) ==
PROVIDERS: Emergency Provider Nurse Practitioner Family; PCP Family Medicine Adolescent Medicine
DX: S92.001A Unspecified fracture of right calcaneus, initial encounter for closed fracture (principal); W17.89XA Other fall from one level to another, initial encounter; F17.210 Nicotine dependence, cigarettes, uncomplicated; F12.90 Cannabis use, unspecified, uncomplicated; J44.9 Chronic obstructive pulmonary disease, unspecified; M19.90 Unspecified osteoarthritis, unspecified site
CPT/HCPCS: 29515; 73610; 73630; 99214; G0463